=== PATIENT | male | born 1990 | race Caucasian/White ===

== ENCOUNTER 2024-08-06 13:00 | Outpatient (AMB) | payer SELFPAY ==
--- NOTE | 2024-08-06 13:21 | AM.OFFWIN_ITS ---
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 Patient Tobacco Use Status: Never used Tobacco Allergies cat dander [CAT] Allergy (Unknown, Unverified 08/06/24 13:25) ITCHY Do you need a note to return to daycare/school/sports/work: Yes HPI HPI Comments History of Present Illness Details History - The patient is a 34 year old male pres enting with acute onset of hot and cold sweats, persistent cough, and chest pain. - The symptomatic journey began several days ago, evolving from hot and cold sweats to a formidable cough causing chest pain due to repeated coughing efforts. - The patient narrates a history indicat blake of asthma but currently devoid of substantial wheezing or breathlessness. - Mild nausea was noted as present yeste rday, though gastrointestinal disturbance such as diarrhea or vomiting is absent, and food intake has been challenging. - Pharmacological intervention has been limited to [id number] medicine, indicated primarily for symptomatic palliation. Physical Exam General: Cooperative, healthy appearing, comfortable and no acute distress Orientation/consciousness: Patient oriented x3 Limitations: No limitations Head: Normal to inspection Ears: Hearing grossly normal bilaterally, external ears normal, fluid accumulating in ears Nose: Normal external nose present, Normal nares present and No nasal discharge present Face and sinus: Normal facial exam and Yes sinuses nontender Mouth: Normal oral and palatal mucosa present and moist mucous membranes Throat: Yes tonsils normal, Yes uvula midline. Posterior oropharynx erythema Eyes: Appearance normal, both eyes and all related structures Neck: Normal visual inspection Respiratory: Clear to auscultation bilaterally. Normal respiratory effort, able to speak in complete sentences, Actively coughing, no respiratory distress, not tachypneic, no tripod positioning and no use of accessory muscles Cardiovascular: tachycardic rate and rhythm. Normal S1 and S2 Skin: No rashes or lesions noted Neuro: Patient oriented x3 Extremities: Normal to inspection and Yes no clubbing, cyanosis or edema PFSH Social History Patient Tobacco Use Status: Never used Tobacco Review of Systems Const All systems reviewed & are unremarkable except as noted in HPI and below Physical Exam Vital Signs: Last Vital Signs Temp 98.9 F 08/06/24 13:24 Pulse 112 H 08/06/24 13:24 BP 138/90 H 08/06/24 13:24 Pulse Ox 98 08/06/24 13:24 Oxygen Delivery Method Room Air 08/06/24 13:24 BMI result Body Mass Index 36.9 Assessment & Plan Assessment & Plan (1) Acute viral syndrome: Code(s): B34.9 - Viral infection, unspecified Plan: VSS, pt well appearing and PE unremarkable. In managing the influenza, emphasis remains on symptom control while awaiting definitive viral identification. Hydration, rest, and common remedies like acetaminophen and ibuprofen are ospina, alongside electrolyte drinks for dehydration concerns. Nutrition focuses on bland items to ease nausea. For respiratory support, the patient should leverage his inhaler given asthma as a precaution against progression. Fluid in ears is addressed through Flonase and Claritin to preempt infection. Tessalon Perles supports night relief from coughing, while daytime use is restrained unless crucial. Oseltamivir is bypassed due to elapsed effective window. Sick leave advice extends to symptom resolution, paired with preparatory materials and contingency education counselor for alarming developments. Patient was informed and verbally consented to the use of an ambient scribe for clinic note documentation during this visit Orders: Orders SARS-CoV2/FLU/RSV Today R09.89 - Other specified symptoms and signs involving the circulatory and respiratory systems Medications: New benzonatate 200 mg PO BEDTIME PRN 10 caps 0RF cough Coding Level of Care Code New Pt Level 3 (17736) Diagnoses Acute viral syndrome B34.9
[2024-08-06 13:24] VITALS: BP 138/90; PULSE 112; TEMP 37.2; O2SAT 98; BMI 36.9
--- OUTSIDE RECORDS SUMMARY | 2024-08-06 15:06 | XMS_ITS | Encounter Summary ---
Author Organization [facility] Address [address] [place] [address] Care Team Providers Care Drapery Maker Name Role Phone Messi Wilson MD Primary Care Provider [phone] Encounter Details Date Type Department Care Team (Late st Contact Info) Description 01/16/2018 Scanned Document [facility] [address] [phone] Jayjay Meredith MD [address] [address] Social History Tobacco Use Types Packs/Day Years Used Date Smoking Tobacco: Never Smokeless Tobacco: Never Alcohol Use Standard Drinks/Week Comments Yes 0 (1 standard drink = 0.6 oz pur e alcohol) AUDIT-C Answer Date Recorded Frequency of Alcohol Consumption Monthly or less 12/14/2017 Average Number of Drinks 1 or 2 018 Frequency of Binge Drinking Less than monthly Sex and Gender Information Value Date Recorded Sex Assigned at Not on file Gender Identity Not on file Sexual Orientation Not on file documented as of this encounter Plan of Treatment Not on file documented as of this encounter Visit Diagnoses Not on filedocumented in this encounter Care Teams Drapery Maker Relationship Specialty Start Date End Date Messi Wilson MD [address] [place] [address] PCP - General Internal Medicine 12/14/17 03/05/18 Apple Turner Ale Garrido 04/15/18 documented as of this encounter
--- OUTSIDE RECORDS SUMMARY | 2024-08-06 15:06 | XMS_ITS | Clinical Summary ---
Author Organization Patient Business [facility] Address [address] [place] [address] Care Team Providers Care Mink Slicer Name Role Phone Pj Fine MD Primary Care Provider [phone] Surgical History Surgery Date Site/Laterality Comments OTHER SURGICAL HISTORY 12/12/2018 PROCEDURE: ---- OTHER ----; COMMENT: Redo Left L4-L5 Metrx microdiscectomy using 7 cm tube for recurrent left L4-L5 disk herniation Medical History Medical History Date Comments Diabetes (CMS/HCC) DX:Diabetes ( HCC) Dyslipidemia DX:Dyslipidemia Abnormal LFTs (liver function tests) DX:Abnormal LFTs (liver function tests) Lumbar disc herniation DX:Lumbar disc herniation Family History Medical History Relation Name Comments No Known Problems Father No Known Problems Mother Relation Name Status Comments Father Mother Social History Tobacco Use Types Packs/Day Years Used Date Smoking Tobacco: Never Smokeless Tobacco: Never Alcohol Use Standard Drinks/Week Comments Yes 0 (1 standard drink = 0.6 oz pur e alcohol) Sex and Gender Information Value Date Recorded Sex Assigned at Not on file Legal Sex Male 10:54 AM EDT Gender Identity Not on file Sexual Orientation Not on file Obstetrics History Last Filed Vital Signs Vital Sign Reading Time Taken Comments Blood Pressure 139/83 09/22/2022 9:28 AM EDT Aut o Cuff Pulse 78 09/22/2022 9:28 AM EDT Temperature - - Respiratory Rate - - Oxygen Saturation - - Inhaled Oxygen Concentration - - Weight 128 kg (283 lb) 09/22/2022 9:28 AM EDT Height 182.9 cm (6') 09/22/2022 9:28 AM EDT Body Mass Index 38.38 09/22/2022 9:28 AM EDT Plan of Treatment Health Maintenance Due Date Last Done Comments Diabetes: Annual GFR (Glomer ular Filtration Rate) 1990 Diabetes: Annual Foot Exam 01/06/2000 Diabetes: Annual Retina Eye Exam 01/06/2000 DTaP,Tdap,and Td Vaccines (1 - Tdap) 2009 Hepatitis B Vaccines (1 of 3 - 19+ 3-dose series) 2009 Cholesterol Screening (Lipid Panel) 03/17/2022 Depression Screening 03/17/2022 HIV Screening 03/17/2022 Hepatitis C Screening 03/17/2022 Social Influencers of Health Screening 03/17/2022 Diabetes: Annual Urine Albumin-Creatinine Ratio (uACR) 05/04/2022 Diabetes: Blood Sugar Contro l Test (HGBA1C) 05/04/2022 COVID-19 Vaccine (2023-2 5 season) 2024 Influenza Vaccine (#1) 2024 HIB Vaccines Aged Out No longer eligi ble based on patient's age to complete this topic HPV Vaccines Aged Out No longer eligi ble based on patient's age to complete this topic Hepatitis A Vaccines Aged Out No long er eligible based on patient's age to complete this topic IPV Vaccines Aged Out No longer eligi ble based on patient's age to complete this topic MMR Vaccines Aged Out No longer eligi ble based on patient's age to complete this topic Meningococcal ACWY Vaccine Aged Out N o longer eligible based on patient's age to complete this topic Meningococcal B Vacine Aged Out No lo nger eligible based on patient's age to complete this topic Pneumococcal Vaccine: Pediat rics (0 to 5 Years) and At-Risk Patients (6 to 64 Years) Aged Out No longer eligible b ased on patient's age to complete this topic RSV Immunization Patients Un juan jose 20 months Aged Out No longer eligible b ased on patient's age to complete this topic Varicella Vaccines Aged Out No longer eligible based on patient's age to complete this topic Care Teams Mink Slicer Relationship Specialty Start Date End Date Pj Fine MD PCP - General Internal Medicine 07/29/18
--- OUTSIDE RECORDS SUMMARY | 2024-08-06 15:06 | XMS_ITS | Encounter Summary ---
Author Organization [facility] Address [address] [place] [address] Care Team Providers Care Wellness Guide Name Role Phone Messi Wilson MD Primary Care Provider Encounter Details Date Type Department Care Team (Late st Contact Info) Description 01/03/2018 Scanned Document [facility] [address] [phone] Jayjay Meredith MD [address] [address] Social History Tobacco Use Types Packs/Day Years [...] on filedocumented in this encounter Care Teams Wellness Guide Relationship Specialty Start Date End Date Messi Wilson MD [address] [place] [address] PCP - General Internal Medicine 12/14/17 03/05/18 Child Care Group Leader Ale Garrido 04/15/18 documented as of this encounter
--- OUTSIDE RECORDS SUMMARY | 2024-08-06 15:06 | XMS_ITS | Encounter Summary ---
Author Organization [facility] Address [address] [place] [address] Care Team Providers Care Pushcart Peddler Name Role Phone Unavailable Primary Care Provider Unavailabl e Encounter Details Date Type Department Care Team (Late st Contact Info) Description 06/14/2018 Scanned Document [facility] [address] [phone] Jayjay Meredith MD [address] [address] Social History Tobacco Use Types Packs/Day Years [...] on filedocumented in this encounter Care Teams Pushcart Peddler Relationship Specialty Start Date End Date Stemmer Machine Ale Garrido 04/15/18 documented as of this encounter
--- OUTSIDE RECORDS SUMMARY | 2024-08-06 15:06 | XMS_ITS | Encounter Summary ---
Author Organization [facility] Address [address] [place] [address] Care Team Providers Care Housing Management Officer Name Role Phone Unavailable Primary Care Provider Unavailabl e Encounter Details Date Type Department Care Team (Late st Contact Info) Description 04/15/2018 Scanned Document [facility] [address] [phone] Jayjay Meredith MD [address] [address] Social History Tobacco Use Types Packs/Day Years [...] on filedocumented in this encounter Care Teams Housing Management Officer Relationship Specialty Start Date End Date Np Ale Garrido 04/15/18 documented as of this encounter
--- OUTSIDE RECORDS SUMMARY | 2024-08-06 15:06 | XMS_ITS | Clinical Summary ---
Author Organization [facility] Address [address] [place] [address] Care Team Providers Care Senior Process Engineer Name Role Phone Unavailable Primary Care Provider Unavailabl e Allergies Active Allergy Reactions Criticality Noted Date Comments Gabapentin Unknown/Patient and Family Unable to Define Medium 01/23/2018 Medications Medication Sig Dispensed Refills Start Date End Date Status glipiZIDE (GLUCOTROL XL) 10 mg 24 hr tablet Take 10 mg by mouth every morning with breakfast. Active pregabalin (LYRICA) 75 MG capsuleIndications:L umbar radiculopathy,Work related injury Take 1 capsule (75 mg total) by mouth 2 (two) times a day. 60 capsule 06/24/2018 Active Active Problems Problem Noted Date Diagnosed Date Work related injury 12/14/2017 Lumbar radiculopathy 12/14/2017 Protrusion of lumbar intervertebral disc 018 Family History Medical History Relation Name Comments Diabetes Brother Diabetes Other grandparent Relation Name Status Comments Brother Other grandparent Social History Tobacco Use Types Packs/Day Years [...] on file Sexual Orientation Not on file Last Filed Vital Signs Vital Sign Reading Time Taken Comments Blood Pressure 133/87 05/29/2018 1:57 PM EST Pulse 118 05/29/2018 1:57 PM EST Temperature 36.2 ??C (97.1 ??F) 03/06/2018 12:27 PM E DT Respiratory Rate 18 04/15/2018 2:29 PM EST Oxygen Saturation 96% 05/29/2018 1:57 PM EST Inhaled Oxygen Concentration - - Weight 118 kg (260 lb) 05/29/2018 1:57 PM EST Height 182.9 cm (6') 05/29/2018 1:57 PM EST Body Mass Index 35.26 05/29/2018 1:57 PM EST Plan of Treatment Health Maintenance Due Date Last Done Comments Hepatitis C Virus Screening 1990 HIV Screening 2003 DTaP/Tdap/Td Vaccines (1 - Tdap) 2009 Hepatitis B Vaccines (1 of 3 - 19+ 3-dose series) 2009 Influenza Vaccine 12/27/2023 COVID-19 Vaccine ( - 2023-2 5 season) 2024 HPV Vaccines Aged Out No longer eligi ble based on patient's age to complete this topic Pneumococcal Vaccine: Pediat taina (0-5 Years) and At-Risk Patients (6 to 49 Years) Aged Out No longer eligible b ased on patient's age to complete this topic Care Teams Senior Process Engineer Relationship Specialty Start Date End Date Emergency Services Director Ale Garrido 04/15/18
== END 2024-08-06 13:44 | disposition home or self-care (01) ==
PROVIDERS: PCP Physician Assistant; Visit Provider Physician Assistant
DX: B34.9 Viral infection, unspecified (principal)

== ENCOUNTER 2024-08-06 13:00 | Outpatient (REF) | payer SELFPAY ==
--- OUTSIDE RECORDS SUMMARY | 2024-08-06 16:01 | XMS_ITS | Encounter Summary ---
Author Organization [facility] Address [address] [place] [address] Care Team Providers Care Char Filter Tank Tender Name Role Phone Unavailable Primary Care Provider Unavailabl e Encounter Details Date Type Department Care Team (Late st Contact Info) Description 06/14/2018 Scanned Document [facility] [address] [phone] Jayjay Meredith MD [address] [address] Social History Tobacco Use Types Packs/Day Years [...] on filedocumented in this encounter Care Teams Char Filter Tank Tender Relationship Specialty Start Date End Date Donor Services Specialist Ale Garrido 04/15/18 documented as of this encounter
--- OUTSIDE RECORDS SUMMARY | 2024-08-06 16:01 | XMS_ITS | Clinical Summary ---
Author Organization [facility] Address [address] [place] [address] Care Team Providers Care Raimann Machine Operator Name Role Phone Unavailable Primary Care Provider [...] age to complete this topic Care Teams Raimann Machine Operator Relationship Specialty Start Date End Date House Cleaner Ale Garrido 04/15/18
--- OUTSIDE RECORDS SUMMARY | 2024-08-06 16:01 | XMS_ITS | Encounter Summary ---
Author Organization [facility] Address [address] [place] [address] Care Team Providers Care Grade School Teacher Name Role Phone Unavailable Primary Care Provider Unavailabl e Encounter Details Date Type Department Care Team (Late st Contact Info) Description 04/15/2018 Scanned Document [facility] [address] [phone] Jayjay Meredith MD [address] [address] Social History Tobacco Use Types Packs/Day Years [...] on filedocumented in this encounter Care Teams Grade School Teacher Relationship Specialty Start Date End Date Bit Gatherer Ale Garrido 04/15/18 documented as of this encounter
--- OUTSIDE RECORDS SUMMARY | 2024-08-06 16:01 | XMS_ITS | Clinical Summary ---
Author Organization Patient Business [facility] Address [address] [place] [address] Care Team Providers Care Premium Service Representative Name Role Phone Pj Fine MD Primary Care Provider [phone] Surgical History Surgery Date Site/Laterality Comments OTHER [...] age to complete this topic Care Teams Premium Service Representative Relationship Specialty Start Date End Date Pj Fine MD PCP - General Internal Medicine 07/29/18
--- OUTSIDE RECORDS SUMMARY | 2024-08-06 16:01 | XMS_ITS | Encounter Summary ---
Author Organization [facility] Address [address] [place] [address] Care Team Providers Care Recreation Therapist Name Role Phone Messi Wilson MD Primary Care Provider [phone] Encounter Details Date Type Department Care Team (Late st Contact Info) Description 01/03/2018 Scanned Document [facility] [address] [phone] Jayjay Meredith MD [address] [address] Social History Tobacco Use Types Packs/Day Years [...] on filedocumented in this encounter Care Teams Recreation Therapist Relationship Specialty Start Date End Date Messi Wilson MD [address] [place] [address] PCP - General Internal Medicine 12/14/17 03/05/18 Flight Steward Ale Garrido 04/15/18 documented as of this encounter
--- OUTSIDE RECORDS SUMMARY | 2024-08-06 16:01 | XMS_ITS | Encounter Summary ---
Author Organization [facility] Address [address] [place] [address] Care Team Providers Care Craft Superintendent Name Role Phone Messi Wilson MD Primary Care Provider [phone] Encounter Details Date Type Department Care Team (Late st Contact Info) Description 01/16/2018 Scanned Document [facility] [address] [phone] Jayjay Meredith MD [address] [address] Social History Tobacco Use Types Packs/Day Years [...] on filedocumented in this encounter Care Teams Craft Superintendent Relationship Specialty Start Date End Date Messi Wilson MD [address] [place] [address] PCP - General Internal Medicine 12/14/17 03/05/18 Stave Block Roller Ale Garrido 04/15/18 documented as of this encounter
[2024-08-06 17:43] LABS: Influenza A PCR NEGATIVE (Negative); Influenza B PCR NEGATIVE (Negative); Resp Syncy Virus RNA Qual PCR NEGATIVE (Negative); SARS COV2 PCR INHOUSE NEGATIVE (Negative)
== END 2024-08-06 13:01 | disposition home or self-care (01) ==
LOC: HO.LNP 13:00
PROVIDERS: PCP Physician Assistant; Visit Provider Physician Assistant
DX: B34.9 Viral infection, unspecified (principal); R05.8 Other specified cough; R09.89 Other specified symptoms and signs involving the circulatory and respiratory systems
CPT/HCPCS: 0241U; 99202